=== PATIENT | female | born 1965 | race Caucasian/White ===

== ENCOUNTER 2025-01-31 07:16 | Emergency (ER) | payer BC, SELFPAY ==
[2025-01-31 07:34] VITALS: BP 133/88
[2025-01-31 07:43] VITALS: BP 131/78
--- NOTE | 2025-01-31 08:00 | ED.GENMED ---
History of Present Illness
General
Chief Complaint: Cough
Source: patient
Time Seen by Provider: 01/31/25 07:43
History of Present Illness
History of Present Illness:
59-year-old female with past medical history of hypertension, hyperlipidemia, GERD, previous breast cancer presenting to the emergency department for evaluation of a nonproductive cough, wheezing and shortness of breath that been gradually worsening
over the last 2 to 3 days, worse last night stating that when she would lay flat she felt as if she were having a harder time breathing and wheezing prompting her to come to the ER this morning. Patient notes that she was recently at a conference
in [place] for about 4 days and wonders if this is where she could have gotten sick. She notes a somewhat remote history of asthma but never really treated for this and does not have any rescue inhalers or nebulizer treatments. She denies any
fevers, chills, rigors or any other symptoms presently including lower extremity edema, hemoptysis or pleurisy
Past History
Past History
ED Past Medical History: Cancer, GERD, HTN, Hypercholesterolemia and Other (Blood pressures taken in legs due to bilateral mastectomies, has stage 3 breast cancer, had chemo, radiation ([id number]) and reconstruction. Hysterectomy. Pain left leg
'reflux' had a procedure done ('sclerosis something') to get vein flow back to normal.)
ED Past Surgical History: and Gynecological
Social History
Tobacco: Non-smoker
Alcohol: None
Drug: None
Personal: Single
Living: with family (2 daughters)
Employment: Employed (Radiology dept)
Family History
Family History: Other
Review of Systems
Review of Systems
All Other Systems: ROS reviewed and negative except as documented in HPI and ROS
Phy Exam
Physical Exam
Physical Exam:
GENERAL: Alert , in no apparent distress
EYE: conjunctiva clear
NECK: Supple, no significant adenopathy.
ENT: o/p clr, mmm.
CARDIAC: Regular rate and rhythm
LUNGS: Clear breath sounds bilaterally, no acute respiratory distress, no wheezes/rales/rhonchi. Pulse ox waxes and wanes between 92 to 98% on room air
NEUROLOGICAL: Alert and oriented
SKIN: Warm and dry, skin intact.
MUSCULOSKELETAL: well perfused.
PSYCH: Normal and appropriate interaction.
Scores
Heart Failure Risk
Heart Failure Risk Score: Not Applicable
Heart Score for Chest Pain Patients
STEMI patient?: Not applicable
Withdrawal Assessment of Alcohol
Withdrawal Assessment Completed?: Not applicable
Course
Orders/Labs/Results
Orders:
Orders
01/31/25 07:52
CT Chest PE Study Urgent
Comment:
Reason For Exam: cough, SOB
01/31/25 08:00
Basic Metabolic Panel Urgent
COVID-19 Antigen Urgent
Source: Nasal Swab
Complete Blood Count/With Diff Urgent
Influenza A+B Rapid Molecular Urgent
RENETTA Source: Nasal Swab
Specimen Description:
Abnormal Lab Results
01/31/25
08:00
MPV 10.5 H fL
(7.4-10.4)
Chloride 108 H mmol/L
(98-107)
BUN 18 H mg/dl
(7-17)
Glucose 101 H mg/dl
(70-99)
01/31/25 08:00
01/31/25 08:00
Vital Signs
Initial and Last Documented VS:
Initial Vital Signs
Temp Pulse Resp BP Pulse Ox
98.5 F 79 16 133/88 96
01/31/25 07:34 01/31/25 07:34 01/31/25 07:34 01/31/25 07:34 01/31/25 07:34
Last Documented Vital Signs
Temp Pulse Resp BP Pulse Ox
98.5 F 73 13 131/78 98
01/31/25 07:34 01/31/25 09:37 01/31/25 08:45 01/31/25 07:43 01/31/25 09:37
MDM/Problems Addressed
Differential Diagnosis Includes:
COVID/flu or other viral etiology, pneumonia, PE, legionnaires, bronchitis, asthma
MDM/Problems Addressed:
59-year-old female presenting to the ER for cough and URI-like symptoms over the last 2 to 3 days, notes recent travel to [place] for a conference. Risk factors for PE including cancer history and travel. Given his risk factors will obtain CT of
the chest to rule out PE. Patient otherwise hemodynamically stable and in no acute respiratory distress. Disposition pending
Chronic conditions affecting care: Cancer
*Radiology
Radiology exam reviewed: radiology read reviewed
*Pulse Oximetry
Patient hypoxic: no
*Senior Technical Editor Interpretation
Rate: normal
Rhythm: sinus
*Critical Care Note
Total Time (30-74mins, 75-104mins- exclusive of procedures): Not Applicable
Patient Management
Escalation/DeEscalation of care consider admission/obs:
Patient CT scan without any evidence for PE. Postradiation changes noted. We discussed the findings of the 1.1 cm left hilar lymph node and that patient will need to follow-up with primary care provider or her previous oncology team for monitoring
of this. I suspect viral etiology is most likely reasoning for patient's symptoms. Prescription for a prednisone taper and albuterol inhaler sent to pharmacy. Patient aware of return precautions to the ER.
ED Attending Note
-
Portions of this chart may have been created with voice recognition software.� Occasional wrong word or��sound alike� substitutions may have occurred due to the inherent limitations of voice recognition software.
Discharge Plan
Departure
Patient Disposition: Home (Routine Discharge)
Date of Disposition: 01/31/25
Time of Disposition: 09:56
Patient with high blood pressure during this ER visit?: No
Discharge Problem:
Cough
Instructions: Cough, Adult (DC)
Prescriptions:
New
prednisone 10 mg Tablet
See Rx Instructions .ROUTE .COMPLEX Qty: 30 0RF
Rx Instructions:
Take By Mouth:
40 mg daily x3 days, 30 mg daily x3 days,
20 mg daily x3 days, 10 mg daily x3 days.
albuterol sulfate 90 mcg/actuation HFA aerosol inhaler
2 puff inhalation Q6H PRN (Reason: shortness of breath or wheezing) Qty: 6.7 0RF
No Action
venlafaxine 75 MG capsule,extended release 24hr
75 mg PO DAILY
simvastatin 40 MG tablet
40 mg PO HS
lisinopril 10 MG tablet
10 mg PO DAILY
lorazepam 1 MG tablet
1 mg PO DAILY
letrozole 2.5 MG tablet
2.5 mg PO HS
valsartan [Diovan] 160 MG tablet
160 mg PO DAILY
cholecalciferol (vitamin D3) 1,000 UNIT capsule
1,000 unit PO DAILY
sulfamethoxazole-trimethoprim 1 TABLET tablet
1 tab PO BID Qty: 14 0RF
methylprednisolone [Medrol (Neftali)] 4 MG tablets,dose pack
4 tab PO . DIRECT Qty: 1 0RF
Rx Instructions:
.
benzonatate 100 MG capsule
100 mg PO TIDPRN PRN (Reason: cough) Qty: 0 0RF
doxycycline hyclate 100 MG capsule
100 mg PO Q12 Qty: 14 0RF
epinephrine [EpiPen 2-Neftali] 0.3 MG/0.3 ML auto-injector
0.3 mg IM PRN PRN (Reason: allergic reaction) Qty: 1 0RF
Referrals:
Romeo Neri DO [Family Provider] -
Interventions
Interventions:
*Risk Screen - Suicide Last Done: 01/31/25 07:34
*General Assessment Last Done: 01/31/25 08:03
*Neglect/Abuse Screening Last Done: 01/31/25 07:34
*ED- Fall Risk Assessment Last Done: 01/31/25 08:03
*ED COVID-19 Vaccine History Last Done: 01/31/25 08:03
ED- Pulmonary Assessment Last Done: 01/31/25 08:05
Discharge Date and Time
Print Language: VIET[place]ESE
[2025-01-31 08:02] VITALS: BMI 33.6
[2025-01-31 08:11] LABS: % Basophils 0.5 % (0-2); % Eosinophils 2.1 % (0-6); % Immature Granulocytes 0.4 % (0-0.5); % Lymphocytes 37.7 % (20.5-51.1); % Monocytes 7.9 % (1.7-9.3); % Neutrophils 51.4 % (42.2-75.2); Absolute Eosinophils 0.1 10^3/uL (0-0.7); Absolute Lymphocytes 2.2 10^3/uL (1.2-3.4); Absolute Monocytes 0.5 10^3/uL (0.1-0.6); Absolute Neutrophils 2.9 10^3/uL (1.4-6.5); Hematocrit 39.3 % (37.0-47.0); Hemoglobin 13.2 g/dL (12.0-16.0); Mean Corp Hgb Conc. 33.6 g/dL (33.0-37.0); Mean Corpuscular Hgb 28.7 pg (27.0-31.0); Mean Corpuscular Volume 85.4 fL (81.0-99.0); Mean Platelet Volume 10.5 fL (7.4-10.4); Nucleated Red Blood Cells % 0 %; Platelet Count 218 10^3/uL (130-400); Red Cell Dist. Width 13.2 % (11.5-14.5); White Blood Cell Count 5.7 10^3/uL (4.8-10.8)
[2025-01-31 08:25] LABS: Blood Urea Nitrogen 18 mg/dl (7-17); Calcium 8.7 mg/dl (8.4-10.2); Carbon Dioxide 28 mmol/L (22-30); Chloride 108 mmol/L (98-107); Estimated Creatinine Clearance 119 ml/min; Glucose 101 mg/dl (70-99); Sodium 142 mmol/L (135-145); eGFR > 60.00
[2025-01-31 08:30] LABS: COVID-19 Antigen Negative (Negative)
== END 2025-01-31 10:08 | disposition home or self-care (01) ==
LOC: EMR 07:16
PROVIDERS: Physician Assistant Medical; EMERGENCY PHYSICIAN Emergency Medicine; FAMILY PHYSICIAN Family Medicine
DX: R05.9 Cough, unspecified (principal); R06.2 Wheezing; R06.02 Shortness of breath; Z11.52 Encounter for screening for COVID-19; I10 Essential (primary) hypertension; E78.00 Pure hypercholesterolemia, unspecified; K21.9 Gastro-esophageal reflux disease without esophagitis; J45.909 Unspecified asthma, uncomplicated; Z85.3 Personal history of malignant neoplasm of breast; Z92.3 Personal history of irradiation; Z92.21 Personal history of antineoplastic chemotherapy; Z90.13 Acquired absence of bilateral breasts and nipples; Z88.6 Allergy status to analgesic agent; Z88.1 Allergy status to other antibiotic agents; Z88.3 Allergy status to other anti-infective agents; Z88.5 Allergy status to narcotic agent; Z88.0 Allergy status to penicillin
CPT/HCPCS: 99284; 71275; 80048; 85025; 87502; 87811; Q9967